=== PATIENT | female | born 1975 | race Caucasian/White ===

== ENCOUNTER 2018-05-11 11:59 | Emergency (ER) | payer MEDICAID ==
[~2018-05-11] VITALS: Ht 162.6 cm; Wt 66.5 kg
[~2018-05-11 11:59] MED LIST: no meds taken
[2018-05-11 12:15] VITALS: BP 124/67; PULSE 78; RESP 20; Ht 162.6 cm; Wt 66.5 kg
--- NOTE | 2018-05-11 15:08 | ERD ---
ER Documentation Chief Complaint Chief Complaint cough more than a week; chest hurts when pt coughs; not in distress HPI 43-year-old female, previously healthy, presents to the emergency department with acute onset of high fever, runny nose, chest congestion, dry cough and general malaise that started 2 days ago. The patient has been receiving dgyy-egm-pzrrpru medications without improvement of the symptoms. Otherwise, no shortness of breath, no rashes, no diarrhea or constipation. ROS All systems reviewed and are negative except as per history of present illness. Medications Home Meds Active Scripts Promethazine Hcl* (Promethazine Hcl* Syrup) 6.25 Mg/5 Ml Syrup, 6.25 MG PO QHS PRN for COUGH for 5 Days, #60 ML Prov:CONNIE GONSALVES MD 05/11/18 Albuterol Sulfate* (Proair HFA*) 8.5 Gm Hfa.aer.ad, 2 PUFF INH Q4, #1 INHALER Prov:CONNIE GONSALVES MD 05/11/18 Amoxicillin* (Amoxicillin*) 500 Mg Cap, 500 MG PO TID for 7 Days, CAP Prov:CONNIE GONSALVES MD 05/11/18 Reported Medications [no meds taken] No Conflict Check 06/23/11 Allergies Allergies: Coded Allergies: No Known Allergy (Unverified , 06/23/11) PMhx/Soc History of Surgery: Yes (CSECTIONX2) Anesthesia Reaction: No Hx Neurological Disorder: No Hx Respiratory Disorders: No Hx Cardiac Disorders: No Hx Psychiatric Problems: No Hx Miscellaneous Medical Probl: No Hx Alcohol Use: Yes (OCCASSIONALLY) Hx Substance Use: No Hx Tobacco Use: No Physical Exam Vitals Vital Signs Date Temp Pulse Resp B/P (MAP) Pulse Ox O2 O2 Flow FiO2 Time Delivery Rate 05/11/18 98.4 78 20 124/67 97 12:15 (86) Physical Exam Const: No acute distress Head: Atraumatic Eyes: Normal Conjunctiva ENT: Normal External Ears, Nose and Mouth. Neck: Full range of motion. No meningismus. Resp: Rhonchi to auscultation bilaterally Cardio: Regular rate and rhythm, no murmurs Abd: Soft, non tender, non distended. Normal bowel sounds Skin: No petechiae or rashes Back: No midline or flank tenderness Ext: No cyanosis, or edema Neur: Awake and alert Psych: Normal Mood and Affect Procedures/MDM At the time of discharge, patient with nontoxic appearance, vital signs stable, no respiratory distress. Differential diagnosis include but not limited to: upper vs lower respiratory infection bacterial/viral/fungal. Asthma, COPD, pneumonitis, allergies, GERD. Less likely pulmonary embolism, cardiac related or malignancy, but still is a possibility. Physical examination and clinical presentation consistent most likely with viral infection with early superimposed bacterial infection. During the ED course the patient remained stable, no new complaints. Treatment options and clinical impression discussed with the patient who agrees with management. The patient is stable to be treated outpatient and will be discharged home. Some side effects of prescribed medications (headache, rash, nausea, vomiting, diarrhea, interactions with other medications) were reviewed. The patient needs to follow up with the primary care provider in the next 48h. If symptoms persist, worsen or new symptoms develop, then patient should return to the ED immediately. Disclaimer: Inadvertent spelling and grammatical errors are likely due to EHR/dictation software use and do not reflect on the overall quality of patient care. Also, please note that the electronic time recorded on this note does not necessarily reflect the actual time of the patient encounter. Departure Diagnosis: Primary Impression: Cough Condition: Stable Additional Instructions: Muchas jonathan por [facility] para abad servicio. Esperamos que en abad visita a la anisha de emergencia abad problema medico haya sido solucionado y que se sienta mucho mejor. Para estar seguros que abad mejoria sigue en proceso, le pedimos el favor de hacer nathan isaak de seguimiento medico con abad doctor primario en los proximos 2-4 garcia. Lleve con usted estos documentos y las medicinas recetadas. Si ольга sintomas empeoran, NO SE ESPERE, por favor regrese a anisha de emergencia INMEDIATAMENTE. En carlos que usted no tenga un mdico de atencin primaria: Llame al mdico o clnica comunitaria de referencia que aparece abajo jasmeet las horas de consultorio para hacer nathan isaak para que le vean. CLINICAS: [facility] [phone] [id number] [facility] [phone] [address] [facility] [phone] [facility] [phone] [place] [phone] [facility] [phone] CONNIE DUENAS MD May 11, 2018 15:08
[2018-05-11] MEDS ORDERED: AMOX500C2 PO (15:09)
[2018-05-11] MEDS ORDERED: PROM6.2515 PO (15:09)
[2018-05-11] MEDS ORDERED: ALBU8.5H8 INH (15:09)
== END 2018-05-11 16:16 | disposition home or self-care (01) ==
LOC: FTE 11:59
DX: R05 Cough (principal)
CPT/HCPCS: 99283